=== PATIENT | male | born 1965 | race Caucasian/White ===

== ENCOUNTER → 2016-12-31 | Outpatient (CLI) | payer MEDICARE ==
[~2016-12-31] MED LIST: AMLO-267 PO; AMLO1CAP12 PO; HYDR-2666 PO; METO100T11 PO; METO100T2 PO; PROAIR HFA8.5 GM IH
--- NOTE | 2016-12-31 15:37 | RAD ---
Lumbar spine, 3 views, 12/31/2016: History: Back pain, stiffness There is a minimal lumbar scoliosis. The lumbar vertebral heights are well-maintained. There appear to be 6 lumbar type vertebral bodies. The intervertebral disc spaces are well preserved. There are moderate scattered marginal spurs. There are mild degenerative changes involving the facet joints in the lower lumbar spine. Aortic calcific plaquing is present. IMPRESSION: 1. Mild degenerative change. 2. No acute bony abnormality is detected. Thoracic spine, 3 views, 12/31/2016: There is a mild thoracic scoliosis. There are mild scattered marginal spurs. No fracture or dislocation is identified. There are streaky opacities medially in the right upper chest, as also noted on the 10/08/2016 chest radiograph. IMPRESSION: 1. Mild degenerative change. 2. No acute lumbar spine abnormality is detected.
== END | disposition home or self-care (01) ==
LOC: RAD 09:46
PROVIDERS: ATTEND Family Medicine
DX: M54.5 Low back pain (principal); M54.6 Pain in thoracic spine; M47.896 Other spondylosis, lumbar region
CPT/HCPCS: 72072; 72100

== ENCOUNTER → 2017-02-07 | Outpatient (CLI) | payer MEDICARE ==
[~2017-02-07] MED LIST changes: +CONTRAST GIVEN MC PRN; +IOHEXOL 300 MG/ML 75 ML VIAL IV ONE
--- NOTE | 2017-02-07 08:53 | RAD ---
Indication lung cancer. Follow-up. Contrast imaging through the chest was performed. Comparison is made to a study 08/01/2016. 75 cc of Omnipaque 300 was administered intravenously. The thoracic aorta appears unremarkable. Moderately extensive coronary artery calcification is noted. No significant hilar or mediastinal adenopathy is seen. Scarring, almost certainly on a post therapeutic basis, is noted in the right upper lobe similar to the previous exam. A dominant parenchymal mass in either lung, acute finding in the chest or definite evidence of tumor recurrence is not seen. Imaging through the upper abdomen is unremarkable. Some minimal scarring is seen at the left costophrenic angle. A few lymph nodes are seen in the right pericardial fat appearing stable. IMPRESSION: Stable chest. No acute finding. No definite evidence of tumor recurrence . PQRS Compliance Statement: One or more of the following individualized dose reduction techniques were utilized for this examination: 1. Automated exposure control 2. Adjustment of the mA and/or kV according to patient size 3. Use of iterative reconstruction technique
== END | disposition home or self-care (01) ==
LOC: CT 07:30
PROVIDERS: ATTEND Radiology Radiation Oncology
DX: C34.90 Malignant neoplasm of unspecified part of unspecified bronchus or lung (principal)
CPT/HCPCS: 71260; Q9967

== ENCOUNTER → 2017-02-17 | Outpatient (CLI) | payer OTHER ==
[~2017-02-17] MED LIST changes: -CONTRAST GIVEN MC PRN; -IOHEXOL 300 MG/ML 75 ML VIAL IV ONE
--- NOTE | 2017-02-17 10:10 | RAD ---
Right hip radiographs History: Right hip pain, no recent injury. Comparison: None. Findings: AP and frog-leg views of the right hip. No acute fracture or dislocation is identified. Moderate right hip degeneration is seen with partial loss of joint space and irregularity of the articular surface as well as small marginal osteophyte formation. Impression: Moderate right hip degeneration.
== END | disposition home or self-care (01) ==
LOC: RAD 09:00
PROVIDERS: ATTEND Neuromusculoskeletal Medicine, Sports Medicine
DX: M25.551 Pain in right hip (principal)
CPT/HCPCS: 73502

== ENCOUNTER → 2017-04-11 | Outpatient (CLI) | payer MEDICARE ==
--- NOTE | 2017-04-11 08:20 | RAD ---
Indication history of lung malignancy in 2012. Follow-up chest x-ray. PA and lateral views of the chest were obtained. Comparison is made to an examination 10/08/2016. Note is made of a CT examination of the chest 02/07/2017. Postoperative changes in the right hemithorax/right upper lobe are noted. Heart size is unchanged. Definite evidence of tumor recurrence is not seen on plain films.. A nodule, probably reflecting a calcified granuloma, is noted overlying the heart on the lateral view. A significant change compared to the prior exam is not seen. IMPRESSION: No acute finding. No significant change
== END | disposition home or self-care (01) ==
LOC: RAD 07:44
PROVIDERS: ATTEND Internal Medicine Hematology & Oncology
DX: I62.9 Nontraumatic intracranial hemorrhage, unspecified (principal); G60.9 Hereditary and idiopathic neuropathy, unspecified; Z92.21 Personal history of antineoplastic chemotherapy; Z92.3 Personal history of irradiation
CPT/HCPCS: 71020

== ENCOUNTER → 2017-08-12 | Outpatient (CLI) | payer MEDICARE ==
[~2017-08-12] MED LIST changes: -AMLO-267 PO; +AMLO1TAB43 PO; +CONTRAST GIVEN MC PRN; -HYDR-2666 PO; +HYDR-2758 PO; +IOHEXOL 300 MG/ML 75 ML VIAL IV ONE; +METO-247 PO; -METO100T11 PO; +PROAIR HFA8.5 GM INH
--- NOTE | 2017-08-12 11:33 | RAD ---
Examination: CT chest with IV contrast History: History of lung cancer followup Comparison: 02/07/2017 Technique: Axial CT images of the chest were performed with IV contrast. Coronal and sagittal reformats are performed PQRS Compliance Statement: One or more of the following individualized dose reduction techniques were utilized for this examination: 1. Automated exposure control 2. Adjustment of the mA and/or kV according to patient size 3. Use of iterative reconstruction technique Findings: The visualized thyroid gland grossly appears unremarkable. Diffuse coronary artery calcifications. The heart size grossly appears unremarkable. The caliber of the aorta grossly appears unremarkable. Unchanged stable appearing right suprahilar, right hilar chronic consolidation/scarring changes likely postoperative changes similar to prior exam. There is no new nodule or mass identified. No evidence of pleural effusion or pneumothorax. Noted likely significant mediastinal lymphadenopathy. The visualized liver, spleen, adrenals grossly appears unremarkable. Mild degenerative changes thoracic spine. Calcified left mediastinal lymph nodes similar to prior exam. Impression: 1. Postoperative changes right lung similar to prior exam.
== END | disposition home or self-care (01) ==
LOC: CT 08:45
PROVIDERS: ATTEND Radiology Radiation Oncology
DX: C34.90 Malignant neoplasm of unspecified part of unspecified bronchus or lung (principal); Z85.118 Personal history of other malignant neoplasm of bronchus and lung
CPT/HCPCS: 71260; Q9967

== ENCOUNTER → 2018-02-10 | Outpatient (CLI) | payer MEDICARE ==
[2018-02-10] MEDS: IOHEXOL 300 MG/ML 100ML VIAL. IV (08:38)
== END | disposition home or self-care (01) ==
LOC: CT 08:01
DX: C34.91 Malignant neoplasm of unspecified part of right bronchus or lung (principal); J98.11 Atelectasis; J84.10 Pulmonary fibrosis, unspecified; I25.10 Atherosclerotic heart disease of native coronary artery without angina pectoris; Z92.3 Personal history of irradiation; Z92.21 Personal history of antineoplastic chemotherapy
CPT/HCPCS: 71260; Q9967

== ENCOUNTER → 2019-02-10 | Outpatient (CLI) | payer MEDICARE ==
[~2019-02-10] MED LIST changes: +ALBU0.63 NEB; +ALBU2.5V8 IH; +ALBU2.5V8 INH; +AMLO10TA8 PO; +BENA20TA4 PO; -CONTRAST GIVEN MC PRN; +CONTRAST GIVEN. MC PRN; -HYDR-2758 PO; +HYDR-2761 PO; +IOHEXOL 300 MG/ML 100ML VIAL. IV ONE; -IOHEXOL 300 MG/ML 75 ML VIAL IV ONE; -METO100T2 PO; +METO100T7 PO; -PROAIR HFA8.5 GM IH; -PROAIR HFA8.5 GM INH
--- NOTE | 2019-02-10 10:36 | RAD ---
Examination: CT chest with IV contrast HISTORY: History of restaging lung cancer COMPARISON: 02/10/2018 TECHNIQUE: Axial CT images of the chest were performed with IV contrast and coronal sagittal reformats are performed Exposure: One or more of the following individualized dose reduction techniques were utilized for this examination: 1. Automated exposure control 2. Adjustment of the mA and/or kV according to patient size 3. Use of iterative reconstruction technique FINDINGS: The visualized thyroid gland grossly appears unremarkable. The heart size grossly appears unremarkable. Coronary artery calcifications identified. Stable consolidation identified in the medial aspect of the right upper lobe in the hilar and suprahilar region similar to prior exam. No evidence of pleural effusion or pneumothorax. Neurologically significant mediastinal lymphadenopathy. Calcified granuloma identified in the left upper lobe of the lung. The visualized liver, spleen, adrenals grossly appears unremarkable. The stomach is mildly distended. The visualized pancreas grossly appears unremarkable. Moderate degenerative changes thoracic spine. IMPRESSION: 1. Stable consolidation identified in the right upper lobe in the hilar and suprahilar region similar to prior exam probably posttreatment changes. Electronically signed by: Reji Aguirre MD (02/10/2019 10:33 AM) [id number]
== END | disposition home or self-care (01) ==
LOC: CT 09:02
PROVIDERS: ATTEND Radiology Radiation Oncology
DX: J84.10 Pulmonary fibrosis, unspecified (principal); M47.894 Other spondylosis, thoracic region; I25.10 Atherosclerotic heart disease of native coronary artery without angina pectoris; R59.0 Localized enlarged lymph nodes; K31.89 Other diseases of stomach and duodenum; Z85.118 Personal history of other malignant neoplasm of bronchus and lung
CPT/HCPCS: 71260; Q9967

== ENCOUNTER → 2021-01-11 | Outpatient (CLI) | payer MEDICARE ==
[~2021-01-11] MED LIST changes: +AMLO-187 PO; -AMLO10TA8 PO; -AMLO1CAP12 PO; +AMLO1CAP13 PO; -CONTRAST GIVEN. MC PRN
--- NOTE | 2021-01-11 17:35 | RAD ---
CT scan of the chest with contrast 01/11/2021 CLINICAL HISTORY: Small cell lung cancer. TECHNIQUE: After the intravenous administration of 60 cc of Omnipaque 300, contiguous, 5 mm axial sec tions were obtained through the chest and upper abdomen. One or more of the following individualized dose reduction techniques were utilized for this study: 1. Automated exposure control. 2. Adjustment of the mA and/or kV according to patient size. 3. Use of iterative reconstruction technique. FINDINGS: Comparison study is dated 02/10/2019. Calcified left hilar and mediastinal lymph nodes are again seen. The heart is borderline enlarged. Ex tensive coronary artery calcifications are noted. Mild atherosclerotic calcification of the thoracic aorta is seen. The thoracic aorta tapers normally. Increased soft tissue density with air bronchogram s is seen involving the medial aspect of the left upper lobe which continues to involve the superior aspect of the right lower lobe. This measures approximately 9.9 x 6.3 x 3.1 cm in craniocaudal, AP an d transverse dimensions. This is unchanged. Volume loss of the right upper lobe is again seen. The ri ght middle lobe is expanded. No new pulmonary mass or nodule is seen. A 1 cm calcified granuloma is seen involving the lingula of the left upper lobe. No pneumothorax or p leural effusion is seen. Images through the upper abdomen demonstrate a 7 mm low-attenuation lesion involving the right lobe o f the liver, unchanged. This likely represents a hepatic cyst. Calcified granulomas are seen in the r egion of the splenic hilum. Degenerative changes are seen throughout the thoracic spine. Mild S-shape d curvature of the thoracolumbar spine is seen. IMPRESSION: Stable CT appearance of the chest as discussed above. No acute abnormality is seen. Electronically signed by: Ramon Foreman MD (01/11/2021 5:33 PM) [id number]
== END ==
LOC: CT 09:44
PROVIDERS: ATTEND Radiology Radiation Oncology
DX: C34.11 Malignant neoplasm of upper lobe, right bronchus or lung (principal); I25.10 Atherosclerotic heart disease of native coronary artery without angina pectoris; I70.0 Atherosclerosis of aorta; I51.7 Cardiomegaly; M47.814 Spondylosis without myelopathy or radiculopathy, thoracic region; M43.8X5 Other specified deforming dorsopathies, thoracolumbar region
CPT/HCPCS: 71260; Q9967